=== PATIENT | male | born 1945 | race African-American/Black ===

== ENCOUNTER 2018-09-22 13:35 | Emergency (ER) | payer OTHER, MEDICAID ==
[~2018-09-22] VITALS: Ht 172.7 cm; Wt 87.0 kg
[2018-09-22 17:02] LABS: CHLORIDE 106 mEq/L (98-107)
[2018-09-22 17:18] LABS: BASOPHILS % 0.7 % (0.0-2.0); EOSINOPHILS % 1.5 % (0.0-5.0); HEMATOCRIT. 39.7 % (42.0-52.0); HEMOGLOBIN. 12.9 g/dL (14.0-18.0); LYMPHOCYTES % 42.6 % (20.0-50.0); MEAN CORPUSCULAR HEMOGLOBIN 33.3 pg (28.0-32.0); MEAN CORPUSCULAR VOLUME 102.1 fL (80.0-94.0); MEAN PLATELET VOLUME 7.3 fl (7.4-10.4); MONOCYTES % 9.9 % (2.0-8.0); NEUTROPHILS % 45.3 % (40.0-76.0); PLATELET 357 x1000/uL (130-400); RED BLOOD CELL COUNT 3.88 mill/uL (4.7-6.1); RED CELL DISTRIBUTION WIDTH 14.8 % (11.6-14.6)
[2018-09-22] MEDS: PREDNISONE 20MG TABLET PO ONE (17:32)
[2018-09-22] MEDS: ACYCLOVIR 400 MG TABLET PO ONE (17:32)
[2018-09-22] MEDS: CEPHALEXIN 250MG CAPSULE PO ONE (17:32)
[2018-09-22] MEDS: CLONIDINE 0.2MG TABLET PO ONE (17:32)
[2018-09-22 17:53] VITALS: BP 145/85
== END 2018-09-22 17:40 | disposition home or self-care (01) ==
LOC: ER 13:35
DX: L03.115 Cellulitis of right lower limb (principal); B02.9 Zoster without complications; I10 Essential (primary) hypertension; K21.9 Gastro-esophageal reflux disease without esophagitis; F17.210 Nicotine dependence, cigarettes, uncomplicated; Z96.652 Presence of left artificial knee joint
CPT/HCPCS: 36415; 80053; 85025; 99284; 99406; J7512

== ENCOUNTER 2019-01-15 12:12 | Inpatient (IN) | payer OTHER, MEDICAID ==
[~2019-01-15] VITALS: Ht 172.7 cm; Wt 88.0 kg
[2019-01-15] MEDS ORDERED: ACYC200C PO (14:07)
[2019-01-15] MEDS ORDERED: LOSA100T32 PO (14:07)
[2019-01-15] MEDS ORDERED: SIMV10TA6 PO (14:07)
[2019-01-15] MEDS ORDERED: MORPHINE SULFATE 4 MG/ML CPJ (NOT FOR IM USE) IV STA (17:14)
[2019-01-15] MEDS ORDERED: KETOROLAC 30MG/ML VIAL IV STA (17:14)
[2019-01-15] MEDS ORDERED: ONDANSETRON HCL 4MG/2ML INJ IV STA (17:14)
[2019-01-15] MEDS ORDERED: VANCOMYCIN 1 G PREMIX 200 ML IV ONE (17:15)
[2019-01-15] MEDS ORDERED: PIPERACILLIN/TAZ 3.375G PREMIX 50 ML IV ONE (17:15)
[2019-01-15 17:29] LABS: CHLORIDE 106 mEq/L (98-107)
[2019-01-15 17:30] LABS: INR 1.1; PARTIAL THROMBOPLASTIN TIME 32.5 sec (23.4-31.0); PROTHROMBIN TIME 10.9 sec (9.6-11.0)
[2019-01-15 17:31] LABS: BASOPHILS % 0.7 % (0.0-2.0); EOSINOPHILS % 1.3 % (0.0-5.0); HEMATOCRIT. 39.1 % (42.0-52.0); HEMOGLOBIN. 12.7 g/dL (14.0-18.0); LYMPHOCYTES % 38.3 % (20.0-50.0); MEAN CORPUSCULAR HEMOGLOBIN 32.9 pg (28.0-32.0); MEAN CORPUSCULAR VOLUME 101.5 fL (80.0-94.0); MEAN PLATELET VOLUME 7.9 fl (7.4-10.4); MONOCYTES % 9.4 % (2.0-8.0); NEUTROPHILS % 50.3 % (40.0-76.0); PLATELET 286 x1000/uL (130-400); RED BLOOD CELL COUNT 3.85 mill/uL (4.7-6.1); RED CELL DISTRIBUTION WIDTH 15.8 % (11.6-14.6)
[2019-01-15 17:37] LABS: CREATINE KINASE 222 IU/L (39-308)
[2019-01-15 17:39] LABS: CREATINE KINASE MB FRACTION 1.5 ng/mL (0.5-3.6)
[2019-01-15 18:16] LABS: CLARITY URINE CLEAR (CLEAR); COLOR URINE YELLOW (YELLOW); KETONES URINE NEGATIVE (NEGATIVE); LEUKOCYTE ESTERASE URINE NEGATIVE (NEGATIVE); NITRITE URINE NEGATIVE (NEGATIVE); OCCULT BLOOD URINE NEGATIVE (NEGATIVE); PH URINE 6.5 (4.5-8.0); PROTEIN URINE NEGATIVE (NEGATIVE); SPECIFIC GRAVITY URINE 1.007 (1.005-1.030); UROBILINOGEN URINE 0.2 E.U./dL (0.2-1.0)
[2019-01-15 18:29] LABS: *BARBITURATES SCREEN URINE NEGATIVE (NEGATIVE); *BENZODIAZEPINES SCREEN URINE NEGATIVE (NEGATIVE); *COCAINE SCREEN URINE NEGATIVE (NEGATIVE)
[2019-01-15 18:30] LABS: *AMPHETAMINES SCREEN URINE NEGATIVE (NEGATIVE); CANNABINOID URINE SCREEN NEGATIVE (NEGATIVE); METHADONE URINE SCREEN NEGATIVE (NEGATIVE); OPIATES URINE SCREEN NEGATIVE (NEGATIVE); PHENCYCLIDINE URINE SCREEN NEGATIVE (NEGATIVE)
[2019-01-15] MEDS ORDERED: CLONIDINE 0.2MG TABLET PO ONE (19:00)
[2019-01-15 22:30] VITALS: BP 169/95
[2019-01-15 22:39] VITALS: BP 169/95
[2019-01-15] MEDS ORDERED: CLONIDINE 0.1MG TABLET PO PRN (22:45)
[2019-01-15] MEDS ORDERED: VANCOMYCIN 1 G PREMIX 200 ML IV SCH (22:45)
[2019-01-15] MEDS ORDERED: PIPERACILLIN/TAZ 3.375G PREMIX 50 ML IV SCH (22:45)
[2019-01-15] MEDS ORDERED: IPRATROPIUM/ALBUTEROL 0.5-3(2.5)MG/3ML NEB HHN PRN (22:45)
[2019-01-15] MEDS ORDERED: ONDANSETRON HCL 4MG/2ML INJ IV PRN (22:45)
[2019-01-16] VITALS: BP 156/99
[2019-01-16] MEDS: PIPERACILLIN/TAZOBACTAM 3.375 G in DEXT 5% WATER 100 ML IV SCH ×4 (02:11→17:03)
[2019-01-16 04:00] VITALS: BP 119/69
[2019-01-16] MEDS: VANCOMYCIN 750 MG PREMIX 150 ML IV SCH ×2 (06:29→18:18)
[2019-01-16 08:00] VITALS: BP 149/90
[2019-01-16] MEDS: ENOXAPARIN 40MG/0.4ML SYR SUBCUT SCH (08:07)
[2019-01-16 09:38] LABS: BASOPHILS % 0.9 % (0.0-2.0); EOSINOPHILS % 2.5 % (0.0-5.0); HEMATOCRIT. 37.5 % (42.0-52.0); HEMOGLOBIN. 12.2 g/dL (14.0-18.0); LYMPHOCYTES % 31.1 % (20.0-50.0); MEAN CORPUSCULAR HEMOGLOBIN 32.9 pg (28.0-32.0); MEAN CORPUSCULAR VOLUME 101.2 fL (80.0-94.0); MEAN PLATELET VOLUME 7.9 fl (7.4-10.4); MONOCYTES % 9.1 % (2.0-8.0); NEUTROPHILS % 56.4 % (40.0-76.0); PLATELET 264 x1000/uL (130-400)
[2019-01-16 09:46] LABS: CHLORIDE 106 mEq/L (98-107)
[2019-01-16 09:56] LABS: LDL CHOLESTEROL 105 mg/dL (5-100)
[2019-01-16 09:57] LABS: CREATINE KINASE 179 IU/L (39-308); HDL CHOLESTEROL 39 mg/dL (40-59); T4 FREE 0.81 ng/dL (0.76-1.46)
[2019-01-16 12:00] VITALS: BP 136/89
[2019-01-16 16:00] VITALS: BP 133/77
[2019-01-16 16:08] LABS: CREATINE KINASE 173 IU/L (39-308)
[2019-01-16 20:00] VITALS: BP 116/69
[2019-01-17] VITALS: BP 142/79
[2019-01-17] MEDS: PIPERACILLIN/TAZOBACTAM 3.375 G in DEXT 5% WATER 100 ML IV SCH ×4 (00:23→17:25)
[2019-01-17 04:00] VITALS: BP 125/71
[2019-01-17] MEDS: VANCOMYCIN 750 MG PREMIX 150 ML IV SCH ×2 (05:55→18:04)
[2019-01-17 08:00] VITALS: BP 139/84
[2019-01-17] MEDS: ENOXAPARIN 40MG/0.4ML SYR SUBCUT SCH (08:47)
[2019-01-17 12:00] VITALS: BP 150/85
[2019-01-17 16:00] VITALS: BP 152/90
[2019-01-17 20:00] VITALS: BP 153/84
[2019-01-18] VITALS: BP 146/84
[2019-01-18] MEDS: PIPERACILLIN/TAZOBACTAM 3.375 G in DEXT 5% WATER 100 ML IV SCH ×3 (01:15→12:34)
[2019-01-18 04:00] VITALS: BP 136/81
[2019-01-18] MEDS ORDERED: VANCOMYCIN 1 G PREMIX 200 ML IV SCH (06:00)
[2019-01-18 08:00] VITALS: BP 138/91
[2019-01-18] MEDS: ENOXAPARIN 40MG/0.4ML SYR SUBCUT SCH (08:53)
[2019-01-18 12:00] VITALS: BP 151/93
[2019-01-18 14:15] LABS: EOSINOPHILS % 1.5 % (0.0-5.0); HEMATOCRIT. 40.2 % (42.0-52.0); LYMPHOCYTES % 31.2 % (20.0-50.0); MEAN CORPUSCULAR HEMOGLOBIN 33.1 pg (28.0-32.0); MEAN PLATELET VOLUME 7.9 fl (7.4-10.4); MONOCYTES % 12.9 % (2.0-8.0); NEUTROPHILS % 53.4 % (40.0-76.0); PLATELET 272 x1000/uL (130-400); RED BLOOD CELL COUNT 3.94 mill/uL (4.7-6.1); RED CELL DISTRIBUTION WIDTH 16.3 % (11.6-14.6)
[2019-01-18 14:22] LABS: CHLORIDE 104 mEq/L (98-107)
[2019-01-18 15:59] VITALS: BP 161/90
== END 2019-01-18 16:55 | disposition home or self-care (01) | DRG 603 ==
LOC: ER 12:52 → 5WST 20:20 → EDBEDREQTM 20:31 → EDBEDREQ 20:31 → ENRESERV 20:44
PROVIDERS: ADMIT Internal Medicine; ATTEND Internal Medicine
DX: L03.115 Cellulitis of right lower limb (principal); I16.0 Hypertensive urgency; E78.5 Hyperlipidemia, unspecified; D64.9 Anemia, unspecified; K21.9 Gastro-esophageal reflux disease without esophagitis; I10 Essential (primary) hypertension; F17.210 Nicotine dependence, cigarettes, uncomplicated; E78.00 Pure hypercholesterolemia, unspecified; B35.9 Dermatophytosis, unspecified; M19.90 Unspecified osteoarthritis, unspecified site; B02.9 Zoster without complications; R73.9 Hyperglycemia, unspecified; Z79.899 Other long term (current) drug therapy
CPT/HCPCS: 36415; 71045; 73590; 80048; 80061; 80202; 80305; 81003; 82550; 82553; 83036; 83605; 83880; 84145; 84439; 84443; 84484; 93005; 93923; 93970; 96365; 97161; 99285; A6261; C1893; J1650; J1885; J2270; J2405; J2543; J3370; J7060

== ENCOUNTER 2022-09-03 20:19 | Inpatient (IN) | payer BC, MEDICAID ==
[~2022-09-03] VITALS: Ht 172.7 cm; Wt 87.5 kg
[~2022-09-03 20:19] MED LIST: ACYC200C31 PO; LOSA100T32 PO; SIMV10TA97 PO
[2022-09-03 21:25] LABS: EOSINOPHILS % 1.6 % (0.0-5.0); HEMATOCRIT. 38.5 % (42.0-52.0); HEMOGLOBIN. 12.8 g/dL (14.0-18.0); LYMPHOCYTES % 37.3 % (20.0-50.0); MEAN CORPUSCULAR VOLUME 101.9 fL (80.0-94.0); MEAN PLATELET VOLUME 7.6 fl (7.4-10.4); MONOCYTES % 9.8 % (2.0-8.0); NEUTROPHILS % 50.3 % (40.0-76.0); PLATELET 310 x1000/uL (130-400); RED BLOOD CELL COUNT 3.77 mill/uL (4.7-6.1); RED CELL DISTRIBUTION WIDTH 15.4 % (11.6-14.6)
[2022-09-03 21:41] LABS: CHLORIDE 105 mEq/L (98-107)
[2022-09-03] MEDS ORDERED: NICARDIPINE 100 MG in SODIUM CHLORIDE 0.9% 60 ML IV ONE (23:45)
[2022-09-03] MEDS ORDERED: NICARDIPINE 40 MG/200 ML PREMIX 200 ML IV PRN (23:45)
[2022-09-04] MEDS ORDERED: ONDANSETRON HCL 4MG/2ML INJ IV PRN (07:30)
[2022-09-04] MEDS ORDERED: ACETAMINOPHEN 325MG TABLET PO PRN ×2 (07:30)
[2022-09-04] MEDS ORDERED: HYDROCODONE/ACETAMINOPHEN 5/325MG TABLET PO PRN (07:30)
[2022-09-04] MEDS ORDERED: CLONIDINE 0.1MG TABLET PO PRN (07:30)
[2022-09-04] MEDS ORDERED: IPRATROPIUM/ALBUTEROL 0.5-3(2.5)MG/3ML NEB HHN PRN (07:30)
[2022-09-04] MEDS ORDERED: LORAZEPAM 0.5MG TABLET PO PRN (07:30)
[2022-09-04] MEDS ORDERED: DOCUSATE SODIUM 100MG CAPSULE PO PRN (07:30)
[2022-09-04] MEDS ORDERED: NALOXONE HCL 0.4MG/ML VIAL IV PRN (07:45)
[2022-09-04] MEDS ORDERED: AMLODIPINE 5MG TABLET PO SCH (09:00)
[2022-09-04] MEDS: ASPIRIN 81MG EC TABLET PO SCH (10:31)
[2022-09-04] MEDS ORDERED: HYDRALAZINE 20MG/ML VIAL IV PRN (10:45)
[2022-09-04 12:05] VITALS: BP 135/89
[2022-09-04 15:26] VITALS: BP 158/106
[2022-09-04] MEDS: LOSARTAN POTASSIUM 25 MG TABLET PO SCH (15:32)
[2022-09-04 19:55] LABS: VITAMIN B12 SERUM 95 pg/mL (211-911)
[2022-09-04 20:00] VITALS: BP 161/115
[2022-09-04 23:45] VITALS: BP_SYST 107; BP_SYST 157; BP_DIAS 43; BP_DIAS 95
[2022-09-05] VITALS (11 sets, daily range): BP systolic 115–163; BP diastolic 35–121
[2022-09-05 06:46] LABS: BASOPHILS % 0.6 % (0.0-2.0); HEMOGLOBIN. 12.7 g/dL (14.0-18.0); MEAN CORPUSCULAR HEMOGLOBIN 33.8 pg (28.0-32.0); MEAN CORPUSCULAR VOLUME 101.1 fL (80.0-94.0); MEAN PLATELET VOLUME 7.3 fl (7.4-10.4); MONOCYTES % 6.6 % (2.0-8.0); NEUTROPHILS % 75.8 % (40.0-76.0); PLATELET 326 x1000/uL (130-400); RED BLOOD CELL COUNT 3.76 mill/uL (4.7-6.1); RED CELL DISTRIBUTION WIDTH 15.5 % (11.6-14.6)
[2022-09-05 07:04] LABS: CHLORIDE 104 mEq/L (98-107)
[2022-09-05] MEDS: LOSARTAN POTASSIUM 25 MG TABLET PO SCH (08:55)
[2022-09-05] MEDS: ASPIRIN 81MG EC TABLET PO SCH (08:56)
[2022-09-05] MEDS ORDERED: AMLODIPINE 5MG TABLET PO SCH (09:00)
[2022-09-05] MEDS: ENOXAPARIN 40MG/0.4ML SYR SUBCUT SCH (16:47)
[2022-09-06] VITALS: BP 117/72
[2022-09-06 02:00] VITALS: BP 116/62
[2022-09-06 04:00] VITALS: BP 121/76
[2022-09-06 08:00] VITALS: BP 125/84
[2022-09-06] MEDS: ASPIRIN 81MG EC TABLET PO SCH (09:29)
[2022-09-06] MEDS: LOSARTAN POTASSIUM 25 MG TABLET PO SCH (09:29)
[2022-09-06] MEDS: AMLODIPINE 10MG TABLET PO SCH (09:33)
[2022-09-06 12:00] VITALS: BP 119/85
[2022-09-06 16:16] VITALS: BP 146/75
[2022-09-06] MEDS: ENOXAPARIN 40MG/0.4ML SYR SUBCUT SCH (16:53)
[2022-09-06] MEDS ORDERED: ATORVASTATIN CALCIUM 40MG TABLET PO SCH ×2 (21:00)
[2022-09-06 22:01] LABS: BASOPHILS % 0.7 % (0.0-2.0); EOSINOPHILS % 0.7 % (0.0-5.0); HEMATOCRIT. 38.9 % (42.0-52.0); HEMOGLOBIN. 12.8 g/dL (14.0-18.0); LYMPHOCYTES % 35.7 % (20.0-50.0); MEAN CORPUSCULAR HEMOGLOBIN 33.8 pg (28.0-32.0); MEAN CORPUSCULAR VOLUME 102.8 fL (80.0-94.0); MEAN PLATELET VOLUME 7.8 fl (7.4-10.4); NEUTROPHILS % 51.9 % (40.0-76.0); PLATELET 310 x1000/uL (130-400); RED BLOOD CELL COUNT 3.78 mill/uL (4.7-6.1); RED CELL DISTRIBUTION WIDTH 15.2 % (11.6-14.6)
[2022-09-07 03:00] VITALS: BP 127/75
[2022-09-07 07:46] LABS: CHLORIDE 105 mEq/L (98-107)
[2022-09-07 08:00] VITALS: BP 136/83
[2022-09-07] MEDS: ASPIRIN 81MG EC TABLET PO SCH (08:50)
[2022-09-07] MEDS: AMLODIPINE 10MG TABLET PO SCH (08:50)
[2022-09-07] MEDS: LOSARTAN POTASSIUM 25 MG TABLET PO SCH (08:50)
[2022-09-07] MEDS ORDERED: CLOPIDOGREL 75MG TABLET PO SCH (09:00)
[2022-09-07] MEDS ORDERED: LOSA25TA3 PO (11:03)
[2022-09-07] MEDS ORDERED: CLOP-31 PO (11:03)
[2022-09-07] MEDS ORDERED: ASPI-1406 PO (11:03)
[2022-09-07] MEDS ORDERED: AMLO10TA80 PO (11:03)
[2022-09-07] MEDS ORDERED: LIP40 PO (11:03)
[2022-09-07 12:00] VITALS: BP 132/80
[2022-09-07 12:56] VITALS: BP 136/83
== END 2022-09-07 15:45 | disposition home or self-care (01) | DRG 65 ==
LOC: ER 20:19 → MICUSO 09-04 01:25 → 5EST 09-04 12:14
PROVIDERS: ADMIT Internal Medicine; ATTEND Internal Medicine
DX: I63.9 Cerebral infarction, unspecified (principal); I16.1 Hypertensive emergency; I67.82 Cerebral ischemia; D53.9 Nutritional anemia, unspecified; F17.210 Nicotine dependence, cigarettes, uncomplicated; I10 Essential (primary) hypertension; K21.9 Gastro-esophageal reflux disease without esophagitis; M19.90 Unspecified osteoarthritis, unspecified site; Z91.199 Patient's noncompliance with other medical treatment and regimen due to unspecified reason; Z86.73 Personal history of transient ischemic attack (TIA), and cerebral infarction without residual deficits
CPT/HCPCS: 36415; 70496; 70498; 70551; 71045; 80048; 80053; 80061; 82607; 82746; 82962; 83036; 84443; 84484; 85025; 93005; 93306; 93970; 97162; 99291; C1893; J0360; J1650